=== PATIENT | male | born 1975 | race Caucasian/White ===

== ENCOUNTER 2018-03-01 09:13 | Emergency (ER) | payer BC, OTHER ==
[~2018-03-01] VITALS: Ht 170.2 cm; Wt 88.5 kg
[2018-03-01] MEDS ORDERED: NORCO 10-325 T1 EACH PO (09:30)
[2018-03-01 10:16] VITALS: BP 136/82
== END 2018-03-01 10:17 | disposition home or self-care (01) ==
LOC: ER 09:13
DX: S46.811A Strain of other muscles, fascia and tendons at shoulder and upper arm level, right arm, initial encounter (principal); I10 Essential (primary) hypertension; M10.9 Gout, unspecified; Z90.89 Acquired absence of other organs; Z88.0 Allergy status to penicillin; X50.0XXA Overexertion from strenuous movement or load, initial encounter; Y93.89 Activity, other specified; Y92.89 Other specified places as the place of occurrence of the external cause; Y99.8 Other external cause status

== ENCOUNTER → 2021-02-17 | Outpatient (CLI) | payer OTHER ==
[~2021-02-17] MED LIST: NORCO 10-325 T1 EACH PO
== END ==
LOC: NUC 07:39
PROVIDERS: ATTEND Surgery
DX: R10.13 Epigastric pain (principal); R14.0 Abdominal distension (gaseous)

== ENCOUNTER 2021-04-01 08:30 | Observation (INO) | payer OTHER ==
[2021-04-01] VITALS (7 sets, daily range): BP systolic 128–137; BP diastolic 76–89
[~2021-04-01] VITALS: Ht 170.2 cm; Wt 92.5 kg
--- NOTE | ~2021-04-01 | O ---
[facility] [place] [address] OPERATIVE REPORT Name: SHAYLEE FOSTER Room #: 433-I [facility] Mayra Hayden#: [id number] Admission: 04/01/21 Attend Phys: Marty Wade MD Discharge: 04/01/21 Date of : 75 Report #: [id number] THIS REPORT FOR: cc: Fidel Fairchild MD, David W. MD Chu,Marty Mcdonnell MD ~ DOC #: [id number] Marty Wade MD DATE OF SERVICE: 04/01/2021 PREOPERATIVE DIAGNOSES: 1. Acalculous cholecystitis, history of abdominal pain consistent with gallbladder disease. 2. Umbilical hernia. POSTOPERATIVE DIAGNOSES: 1. Acalculous cholecystitis with cholesterolosis. 2. Umbilical hernia. PROCEDURES PERFORMED: 1. Laparoscopic cholecystectomy with cholangiogram. 2. Repair of umbilical hernia primarily. ANESTHESIA: Procedure under general anesthesia. SURGEON: Marty Wade M.D. COMPLICATION: None. ESTIMATED BLOOD LOSS: 5 mL. DESCRIPTION OF PROCEDURE: The abdomen was prepped and draped in sterile fashion. Timeout was performed. 0.25% Marcaine was used to anesthetize the skin. A curvilinear incision was made infraumbilically about 2.5 cm. Skin was lifted off of the hernia and there was a fascial defect identified. There was a protrusion about 2 x 1 cm fat tissue. This was freed from the overlying skin, free from the fascial edges and then reduced. Fascia defect is about a 1 cm to 1.5 cm. The 0-Vicryl suture placed on the fascial edges. Fascia was lifted anteriorly. Veress needle was then placed through peritoneum. Abdominal cavity was insufflated with CO2. After creating pneumoperitoneum, 11 mm trocar was placed under visualization. No harm to underlying tissue. The patient was noted to have an unusual appearance of the falciform. The falciform was pretty narrow and the liver is not very much divided by the falciform. The 5 mm trocars placed in the left epigastrium and two 5 mm trocars placed in right epigastrium. Gallbladder was lifted over the liver. There was mild to moderate fatty change in the liver. The proximal part of the gallbladder identified. [address] [address] OPERATIVE REPORT Name: CRISTIANSHAYLEE Nora [id number]mission: 04/01/21 Attend Phys: Marty Wade MD Discharge: 04/01/21 Date of : 75 Report #: [id number] Peritoneum was dissected free. There was some fat over this area. This was dissected free. A lymph node was found in the inferior position and this was freed and removed. The cystic artery was identified and the cystic artery was then a slightly atypical position; this was overlapping the cystic duct. Cystic artery was isolated, clipped x2 proximally and 1 distally and then divided. Cystic duct was then found; cystic duct was a small size. Clip was placed in junction of cystic duct to the gallbladder. Opening was made in the cystic duct. Cholangiogram catheter was placed. Fluoroscopic cholangiogram was obtained. The cholangiogram catheter was identified in the cystic duct. No harm to the common duct. Common duct filled out well. No stones identified in the common duct. The cholangiogram catheter was then removed. The proximal cystic duct was then clipped x2 and then divided. There were 2 posterior cystic artery branch were identified. These were also clipped and divided. Gallbladder was freed from the liver bed. Gallbladder was then placed in a specimen bag, retrieved through the infraumbilical port. Gallbladder was opened off the field. The bile in the gallbladder was pretty sludgy and there was cholesterolosis identified in the gallbladder. Liver bed was checked, hemostasis obtained with cautery. Clips were intact. No bleeding, no bile was seen. Irrigation was aspirated out. The patient's CO2 and trocars were removed. The umbilical hernia defect was then closed with 0 PDS in figure of eight x2. Skin was irrigated. Skin at the umbilicus was tacked down to the fascia with 5-0 PDS. Skin was then closed with 5-0 PDS in subcuticular fashion. Steri-Strip and Band-Aid was used for dressing. The patient tolerated the procedure well. MD GARY Goodson/HUMA By: 44 00 Marty Wade MD /nt
[~2021-04-01 08:30] MED LIST changes: +LOSARTAN POTAS100 MG PO; +METOPROLOL SUCC25 M1 PO; +OMEPRAZOLE 20 M20 M1 PO; +ROSUVASTATIN CA10 MG PO; +STELARA45 MG/0.1 SUBQ; +XANAX 0.25 MG0.25 MG PO
[2021-04-01] MEDS ORDERED: HYDROCODON-ACE1 EAC7 PO (12:39)
--- NOTE | 2021-04-01 15:06 | EKG ---
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
--- NOTE | 2021-04-01 18:06 | NUR ---
RN WENT OVER ALL DISCHARGE EDUCATION AND ALL QUESTIONS ANSWERED, TOLERATED DIET WELL NO NAUSEA, DENIES ANY PAIN, IV OUT, WHEELED OUT IN WHEELCHAIR.
== END 2021-04-01 18:16 | disposition home or self-care (01) ==
LOC: OR 08:30 → 4S 14:07 → OR 15:00 → 4S 18:16
PROVIDERS: ADMIT Surgery; ATTEND Surgery
DX: K80.00 Calculus of gallbladder with acute cholecystitis without obstruction (principal); K42.9 Umbilical hernia without obstruction or gangrene; Z79.899 Other long term (current) drug therapy
CPT/HCPCS: 50010; 50101; 50411; 50555; 50558; 51489; 52265; 53307; 53310; 53312; 55245; 55317; 56462; 56525; 56526; 58574; 62110; 62900; 70005